=== PATIENT | male | born 1940 | race Caucasian/White ===

== ENCOUNTER 2024-03-08 12:44 | Outpatient (OUT) | payer MEDICARE, SELFPAY ==
--- NOTE | 2024-03-08 12:52 | CT_ITS ---
The [address] [address] Patient Name: BIN CORDERO MRN: [id number] date: 1940 Sex: M Assigned Patient Location: CT Current Patient Location: CT Accession/Order Number: [id number] Exam Date: 03/08/2024 12:55 Report Date: 03/08/2024 15:08 At the request of: VU KRISHNA Procedure: CT head/brain wo con CT head/brain wo con, 03/08/2024 12:55 PM EDT INDICATION: Venous Malformation COMPARISON: There is no appropriate prior study for comparison. TECHNIQUE: Axial CT images of the brain from skull base to vertex, including portions of the face and sinuses, were obtained without contrast . Multiplanar reformatted images were generated and reviewed as needed. Dose reduction techniques were achieved by using automated exposure control and/or adjustment of mA and/or kV according to patient size and/or use of iterative reconstruction technique. FINDINGS: The cerebral sulci are appropriate for age. However, the supratentorial ventricular system is enlarged in compared to the sulci. There is mild bowing of the corpus callosum. The temporal horn of the left lateral ventricle measures approximately 8 mm. There is no midline shift, intra or extra-axial fluid collection or hemorrhage. A calcified lesion along the left parasagittal falx is noted measuring approximately 1 x 1.1 cm most likely consistent with a calcified meningioma. The visualized portions of orbits, mastoid air cells as well as paranasal sinuses are unremarkable. There is no suspicious osteolytic or osteoblastic lesion. CT/CT head/brain wo con IMPRESSION: No acute intracranial process is noted. No definite intraparenchymal lesion. Left parasagittal calcified lesion along the superior falx likely consistent with a calcified meningioma. Enlarged ventricular system in compared to the cerebral sulci. Clinical correlation is recommended to rule out normal pressure hydrocephalus. Electronically authenticated by: DON EARLY Date: 03/08/2024 15:08
== END 2024-03-08 12:45 | disposition home or self-care (01) ==
LOC: CT 12:44
PROVIDERS: PCP Internal Medicine; Visit Provider Psychiatry & Neurology Neurology
DX: Q27.9 Congenital malformation of peripheral vascular system, unspecified (principal)
CPT/HCPCS: 70450

== ENCOUNTER 2024-08-23 13:22 | Outpatient (OUT) | payer MEDICARE, SELFPAY ==
--- NOTE | 2024-08-23 13:27 | MR_ITS ---
The [address] [address] Patient Name: BIN CORDERO MRN: [id number] date: 1940 Sex: M Assigned Patient Location: MRI Current Patient Location: MRI Accession/Order Number: [id number] Exam Date: 08/23/2024 15:48 Report Date: 08/23/2024 15:53 At the request of: JORGE VARELA NP Procedure: MR head/brain wo con MR head/brain wo con 08/23/2024 2:17 PM SIGN AND SYMPTOMS: Syncopal episodes, history of previous pelvic formation and meningioma, follow-up PROTOCOL: Multiplanar multisequence MR images of the brain were obtained without IV contrast COMPARISON: 03/08/2024 FINDINGS: Extra axial spaces: There is a calcified meningioma along the posterior falx projecting to the left midline measuring 1.3 x 1.0 cm in greatest dimension. There is mild age-related cortical atrophy. Hemorrhage: There is a focal area of susceptibility in the parasagittal left frontal cortex consistent with a history of cavernous malformation. This is only well demonstrated on gradient imaging were measures approximately 7 mm in greatest dimension. Ventricular system: Within normal limits. Basal cisterns: Within normal limits and not effaced. Cerebral parenchyma: Periventricular and subcortical white matter T2 and FLAIR hyperintense signal is noted consistent with chronic microvascular ischemic change. Midline shift: None.. Cerebellum: Within normal limits. Brainstem: Within normal limits. OTHER: Calvarium: Normal marrow signal. Vascular system: Satisfactory flow voids within the anterior and posterior circulation. Visualized Paranasal sinuses: Within normal limits. Visualized Orbits: Within normal limits. Visualized upper cervical spine: Within normal limits. Sella and skull base: Within normal limits. MR/MR head/brain wo con IMPRESSION: There is a focal area of susceptibility in the parasagittal left frontal cortex consistent with a history of cavernous malformation. This is only well demonstrated on gradient imaging were measures approximately 7 mm in greatest dimension. There is a calcified meningioma along the posterior falx projecting to the left midline measuring 1.3 x 1.0 cm in greatest dimension. There is age-related cortical atrophy. Chronic age-related neurodegenerative changes are noted as above similar to the prior CT Impression dictated by: Hemanth Hale M.D.08/23/2024 3:53 PM Dictation Location: [place] [address] Electronically authenticated by: [id number] Y Date: 08/23/2024 15:53
== END 2024-08-23 13:23 | disposition home or self-care (01) ==
LOC: MRI 13:22
PROVIDERS: PCP Internal Medicine; Visit Provider Nurse Practitioner Family
DX: Q27.9 Congenital malformation of peripheral vascular system, unspecified (principal); D32.9 Benign neoplasm of meninges, unspecified
CPT/HCPCS: 70551